=== PATIENT | female | born 1945 | race African-American/Black ===

== ENCOUNTER → 2017-02-24 | Outpatient (CLI) | payer OTHER ==
[~2017-02-24] MED LIST: ADVAIR HFA 230M12 GM INH; ALBUTEROL INH; AMBIEN 10 MG TA10 MG PO; AMBIEN 5 MG TABL5 M1 PO; ASPIR 8181 MG PO; AUGMENTIN 875875 MG PO; BACTROBAN CREAM30 GM TOP; CIPROFLOXACIN500 M1 PO; FERRO-TIME325 MG PO; FLAGYL500 MG PO; FLONASE 0.05%50 MCG NASAL; GLUCOPHAGE XR500 MG PO; GLUCOPHAGE500 MG PO; HYDROCHLOROTH12.5 M1 PO; HYDROCHLOROTHIA25 M1 PO; HYDROCODONE-AP1 EAC6 PO; HYDROCODONE-APA1 TA1 PO; KEFLEX500 MG PO; KLOR-CON SPRIN10 MEQ PO; LASIX 20 MG TAB20 MG PO; LEVOTHYROXIN0.075 MG PO; LISINOPRIL20 MG PO; LISINOPRIL30 MG PO; LISINOPRIL40 MG PO; MACROBID 100 M100 M1 PO; METFORMIN HCL500 MG PO; NASONEX17 GM NS; NEXIUM40 MG PO; OCUFLOX10 ML OP; PANTOPRAZOLE SO40 M1 PO; PEPCID40 MG PO; POTASSIUM20 PO; PRED FORTE 1% EY5 M1 OP; PROAIR HFA8.5 GM IH; SYMBICORT160 MCG/4. INH; TIROSINT75 MCG PO; ULTRAM 50MG TAB50 MG PO; XANAX 0.25 MG0.25 MG PO; ZANTAC 150MG T150 M1 PO; ZPAK PO
== END ==
LOC: RAD 01:19
DX: Z12.31 Encounter for screening mammogram for malignant neoplasm of breast (principal)

== ENCOUNTER 2017-10-17 09:44 | Inpatient (IN) | payer OTHER ==
[~2017-10-17] VITALS: Ht 152.4 cm; Wt 90.3 kg
[2017-10-17 10:24] LABS: ABSOLUTE NEUTROPHILS 4.9 thou/uL (1.4-8.2); BASOPHILS 0.3 % (0.0-2.0); EOSINOPHILS 1.5 % (0.0-3.0); HEMATOCRIT 38.3 % (37.0-47.0); HEMOGLOBIN 12.5 gm/dL (12.0-15.0); LYMPHOCYTES 14.4 % (24.0-44.0); MCH 28.2 pg (26.0-34.0); MCHC 32.7 g/dL (28.0-37.0); MCV 86.1 fL (80.0-100.0); MONOCYTES 2.3 % (1.0-8.0); PLATELET COUNT 249 thou/uL (150-400); POLYS 81.5 % (36.0-66.0); RBC 4.46 mil/uL (4.20-5.00); RDW 14.7 % (10.5-14.5)
[2017-10-17 10:25] VITALS: BP 137/60
[2017-10-17 10:32] LABS: CALCIUM 8.8 mg/dL (8.5-10.1); CREATININE 0.7 mg/dL (0.6-1.0); POTASSIUM 3.7 mmol/L (3.5-5.1)
[2017-10-17 10:38] LABS: ALBUMIN 2.9 g/dL (3.4-5.0); TOTAL BILIRUBIN 0.4 mg/dL (<0.1-1.0); TOTAL PROTEIN 6.3 g/dL (6.4-8.2)
[2017-10-17 11:44] LABS: URINE BILIRUBIN NEGATIVE (Negative); URINE BLOOD NEGATIVE (Negative); URINE CLARITY CLEAR; URINE COLOR YELLOW; URINE GLUCOSE-RANDOM* NEGATIVE (Negative); URINE KETONES 1+ (Negative); URINE LEUKOCYTES-REFLEX NEGATIVE (Negative); URINE NITRITE-REFLEX NEGATIVE (Negative); URINE PROTEIN (DIPSTICK) NEGATIVE (Negative); URINE SPECIFIC GRAVITY <= 1.005 (1.005-1.035); URINE UROBILINOGEN 0.2 E.U./dl (0.2-1.0)
[2017-10-17 11:50] VITALS: BP 158/71
[2017-10-17] MEDS ORDERED: HYDROCODONE-AP1 EAC6 PO (11:56)
[2017-10-17] MEDS ORDERED: ASPIR 8181 MG PO (11:56)
[2017-10-17 12:50] VITALS: BP 171/98
[2017-10-17 13:20] VITALS: BP 152/78
[2017-10-17 15:41] VITALS: BP 154/69
[2017-10-17 19:19] VITALS: BP 139/59
[2017-10-18 00:02] VITALS: BP 96/62
[2017-10-18 03:56] VITALS: BP 142/47
[2017-10-18 06:43] LABS: ABSOLUTE NEUTROPHILS 6.4 thou/uL (1.4-8.2); BASOPHILS 0.5 % (0.0-2.0); EOSINOPHILS 0.9 % (0.0-3.0); HEMATOCRIT 34.3 % (37.0-47.0); HEMOGLOBIN 11.4 gm/dL (12.0-15.0); LYMPHOCYTES 14.1 % (24.0-44.0); MCH 28.6 pg (26.0-34.0); MCHC 33.2 g/dL (28.0-37.0); MCV 86.1 fL (80.0-100.0); PLATELET COUNT 235 thou/uL (150-400); POLYS 75.5 % (36.0-66.0); RBC 3.99 mil/uL (4.20-5.00); RDW 14.5 % (10.5-14.5); WBC 8.5 thou/uL (4.0-11.0)
[2017-10-18 07:00] LABS: CALCIUM 8.5 mg/dL (8.5-10.1); CREATININE 0.6 mg/dL (0.6-1.0); MAGNESIUM 1.4 mg/dL (1.8-2.4); POTASSIUM 3.5 mmol/L (3.5-5.1)
[2017-10-18 08:00] VITALS: BP 137/58
[2017-10-18 15:29] VITALS: BP 150/66
[2017-10-18 20:45] VITALS: BP 154/78
[2017-10-19 05:28] VITALS: BP 142/54
[2017-10-19 06:45] LABS: HEMATOCRIT 33.4 % (37.0-47.0); MCH 28.4 pg (26.0-34.0); MCHC 32.8 g/dL (28.0-37.0); MCV 86.6 fL (80.0-100.0); RBC 3.86 mil/uL (4.20-5.00); RDW 14.5 % (10.5-14.5)
[2017-10-19 06:58] LABS: CALCIUM 8.4 mg/dL (8.5-10.1); CREATININE 0.6 mg/dL (0.6-1.0); POTASSIUM 3.2 mmol/L (3.5-5.1)
[2017-10-19 08:03] VITALS: BP 126/50
[2017-10-19 14:23] VITALS: BP 126/50
[2017-10-19 15:16] VITALS: BP 126/50
== END 2017-10-19 15:15 | disposition home or self-care (01) | DRG 388 ==
LOC: ER 09:44 → 4W 11:50 → EROBS 11:50 → 4W 13:22 → ENTRNSPT 10-19 15:13 → 4W 10-19 15:15 → EDTRNSPTSTS 10-19 15:15
PROVIDERS: Emergency Medicine; Nurse Practitioner; Surgery
DX: K56.600 Partial intestinal obstruction, unspecified as to cause (principal); E43 Unspecified severe protein-calorie malnutrition; J45.909 Unspecified asthma, uncomplicated; E03.9 Hypothyroidism, unspecified; I10 Essential (primary) hypertension; E11.9 Type 2 diabetes mellitus without complications; E87.6 Hypokalemia; E83.42 Hypomagnesemia; D51.9 Vitamin B12 deficiency anemia, unspecified; K66.0 Peritoneal adhesions (postprocedural) (postinfection); Z90.49 Acquired absence of other specified parts of digestive tract; Z68.38 Body mass index [BMI] 38.0-38.9, adult; Z79.82 Long term (current) use of aspirin; Z79.899 Other long term (current) drug therapy
CPT/HCPCS: 10045

== ENCOUNTER 2017-11-10 02:37 | Inpatient (IN) | payer OTHER ==
[2017-11-10] VITALS (10 sets, daily range): BP systolic 118–210; BP diastolic 65–111
[~2017-11-10] VITALS: Ht 160 cm; Wt 88.2 kg
--- NOTE | ~2017-11-10 | EKG ---
[address] [address] ELECTROCARDIOGRAM REPORT Name: TERRANCE SOLER Room #: 360-P ADM IN M.R.#: [id number] Admission: 11/10/17 Attend Phys: Vishal Moreira MD Discharge: Date of : 43 Report #: [id number] THIS REPORT FOR: //name// [facility] ED Test Date: 2017-11-10 Test Time: 02:50:22 Pat Name: TERRANCE SOLER Department: Room: 360 Gender: F Dormitory Keeper: MZOOK : 1945 Requested By: Christiana Crisostomo Order Number: [id number] MD: Mike Cain Measurements Intervals [place] Rate: 84 P: 62 OR: 175 QRS: 0 QRSD: 74 T: 44 QT: 356 QTc: 421 Interpretive Statements Sinus rhythm No significant abnormality Compared to ECG 11/02/2017 02:50:15 Myocardial infarct finding no longer present Electronically Signed On 11-10-2017 17:22:13 CDT by Mike Cain [email or web address] <ELECTRONICALLY SIGNED> By: Mike Cain MD, [facility] 11/10/17 1722 D: [id number] Mike Cain MD, FACC /EPI
--- NOTE | ~2017-11-10 | HC ---
[facility] [place] [address] CONSULTATION Name: TERRANCE SOLER Room #: 360-[facility] IN M.R.#: [id number] Admission: 11/10/17 Attend Phys: Vishal Moreira MD Discharge: Date of : 43 Report #: [id number] THIS REPORT FOR: //name// CC: Vishal Moreira Trinity Dickerson DATE OF SERVICE: 11/10/2017 REFERRING PROVIDER: Vishal Moreira MD REASON FOR CONSULT: Abdominal pain. HISTORY OF PRESENT ILLNESS: The patient is a 72-year-old -Honduran female known to me from a prior urgent laparoscopic repair of an incarcerated paraesophageal hernia in 2014. The patient did well from that operation until recently when she was admitted in the past few weeks with abdominal pain and CT findings of a possible small-bowel obstruction with matted clump of small bowel loops in the left upper quadrant. The patient's bowel obstruction improved with conservative therapy and she was discharged home only to be readmitted a week ago with ongoing complaints of pain. A repeat CT scan done a week ago again showed thickened small bowel loops in the similar area as to her matted clumps of small bowel loops, although a followup upper GI swallow was done showing normal transit, no obstruction and no mucosal abnormality. The patient was seen by Dr. Kim with the Gastroenterology Service who placed her on antibiotics for possible enteritis and as she improved once again clinically with conservative measures, she was discharged home. Unfortunately, the patient has now been readmitted with ongoing complaints of abdominal pain once again with workup last evening in the Emergency Room consisting of laboratories and a repeat CT scan once again. The patient's labs as per usual are within normal limits and her CT scan does show dilated proximal small bowel with normal small bowel distally concerning for yet again another bowel obstruction. For this reason, I am asked to evaluate once again. PAST MEDICAL HISTORY: Hypertension, hypothyroidism, asthma, pneumonia, ventral hernia, diabetes mellitus and a prior paraesophageal hernia repair. She has also undergone laparoscopic cholecystectomy with an umbilical hernia repair as well. HOME MEDICATIONS: Synthroid, metformin, lisinopril, hydrocodone, aspirin and Protonix. ALLERGIES: No known drug allergies. FAMILY HISTORY: Reviewed and noncontributory. SOCIAL HISTORY: The patient does not utilize tobacco, alcohol or illicit drugs. [address] [address] CONSULTATION Name: TERRANCE SOLER Room #: [address] [place] [address] IN M.R.#: [id number] Admission: 11/10/17 Attend Phys: Vishal Moreira MD Discharge: Date of : 44 Report #: [id number] REVIEW OF SYSTEMS: GENERAL: The patient denies nocturnal fevers or chills. HEENT: No change in vision, change in hearing. NECK: No swelling or difficulty swallowing. HEART: No chest pain or palpitations. LUNGS: No cough or shortness of breath. ABDOMEN: Abdominal pain, but no nausea or vomiting. GENITOURINARY: No dysuria or hematuria. ENDOCRINE: No polyuria, polydipsia. HEMATOLOGIC: No history of bleeding or easy bruising. EXTREMITIES: No history of weakness or limited range of motion. NEUROLOGIC: No history of syncope or near syncopal episodes. SKIN AND INTEGUMENT: No history of abnormal lesions or moles. PSYCHIATRIC: No history of anxiety or depression. PHYSICAL EXAMINATION: VITAL SIGNS: Temperature 98.0, pulse 78, respirations 21, blood pressure 190/97. She is 5 feet 3 inches tall and weighs 194 pounds. GENERAL: Alert and oriented, in no acute distress. HEENT: Normocephalic, atraumatic. Pupils are equal, round, reactive to light. NECK: Supple, without lymphadenopathy. Trachea midline. HEART: Regular rate and rhythm. LUNGS: Clear to auscultation bilaterally. ABDOMEN: Soft, obese, minimal distention and no tenderness to palpation. No guarding, no rebound, no peritoneal signs or symptoms. GENITOURINARY: Normal external female genitalia. EXTREMITIES: No clubbing, cyanosis or edema. NEUROLOGIC: Cranial nerves 2-12 are grossly intact. PSYCHIATRIC: Normal mood and affect. SKIN AND INTEGUMENT: No abnormal lesions or moles. LABORATORY AND X-RAY DATA: CBC showed white blood cell count of 5.3 thousand, hemoglobin 12.7, platelets 301,000. Creatinine is 0.9. Liver function enzymes are normal. Albumin is normal at 3.5, lactic acid normal at 1.6. CT scan of the abdomen and pelvis as per HPI shows dilated proximal small bowel with decompressed distal ileum concerning for recurrent bowel obstruction in the left mid abdomen. Urinalysis was negative. ASSESSMENT AND PLAN: A 72-year-old -Honduran female with her third admission as of late with complaints of ongoing abdominal pain. CT scans have been consistent in that they show dilated proximal small bowel with decompressed bowel distally, although a followup upper GI swallow showed normal transit with no dilated bowel with no obstruction. She did have mucosal thickening on some small bowel loops seen on her prior imaging for which she has been on antibiotics. She does not have any nausea or vomiting currently and is hungry. [address] [address] CONSULTATION Name: TERRANCE SOLER Room #: 360-P [facility] IN M.R.#: [id number] Admission: 11/10/17 Attend Phys: Vishal Moreira MD Discharge: Date of : 44 Report #: [id number] This is a mixed picture with radiographic evidence of a possible obstruction; however, no clinical evidence to support that other than ongoing abdominal pain. I suspect this is more of a partial obstruction than anything and due to this being her third admission, she may necessitate operative intervention for correction of this issue. At this time, an NG tube has been placed and I recommend continuation of that low intermittent suction for decompression and bowel rest at this time. I will follow along and leave any further recommendations in the patient's chart as appropriate and I sincerely appreciate this consult. <ELECTRONICALLY SIGNED> By: Linda Frazier MD, FACS 11/13/17 0851 1155 04 Linda Frazier MD, FACS /nt
--- NOTE | ~2017-11-10 | O ---
[facility] [place] [address] OPERATIVE REPORT Name: TERRANCE SOLER Room #: 360-P ADM IN M.R.#: [id number] Admission: 11/10/17 Attend Phys: Vishal Moreira MD Discharge: Date of : 44 Report #: [id number] THIS REPORT FOR: //name// CC: Vishal Dicekrson SURGEON: Christ Rasmussen MD PADDED BOX SEWER: Naman Hudson DO PREOPERATIVE DIAGNOSES: 1. Mechanical small bowel obstruction. 2. Diabetes mellitus. 3. Hypertension. 4. Asthma. 5. Hypothyroidism. POSTOPERATIVE DIAGNOSES: 1. Mechanical small bowel obstruction likely secondary to intra-abdominal adhesions from previous surgery. 2. Diabetes mellitus. 3. Hypertension. 4. Asthma. 5. Hypothyroidism. PROCEDURE: 1. Diagnostic laparoscopy. 2. Laparoscopic lysis of adhesions (70 minutes) with release of small bowel obstruction. ANESTHESIA: General endotracheal anesthesia and local anesthetic. ESTIMATED BLOOD LOSS: 5 mL. SPECIMEN: None. COMPLICATIONS: None appreciated. INDICATIONS FOR PROCEDURE: This is a 72-year-old female patient who has been admitted multiple times for small bowel obstructions which have resolved spontaneously, but recurred prompting her current hospital admission. During this admission, a nasogastric tube was placed and she again began passing flatus. Her x-rays showed some improvement; however, her dilated small bowel remained. She underwent a CT enterography study showing a transition point in the left mid abdomen with bowel dilated up to 4.8 cm in diameter. The patient presents today for laparoscopic release of her small bowel obstruction. [facility] [address] [place] [address] OPERATIVE REPORT Name: TERRANCE SOLER Room #: 360-P ADM IN M.R.#: [id number] Admission: 11/10/17 Attend Phys: Vishal Moreira MD Discharge: Date of : 44 Report #: [id number] OPERATIVE FINDINGS: Upon entrance into the abdominal cavity, the patient had adhesions involving the small bowel and omentum to the anterior abdominal wall where a previous hernia repair had taken place. She also had adhesions in the right upper quadrant from an open cholecystectomy. All bowel that was adherent to the anterior abdominal wall was decompressed. The more proximal bowel was involved with the obstruction. An omental adhesion down to the retroperitoneum appeared to have been the main cause for the obstruction after releasing the adhesion. The small bowel was run multiple times from distal to proximal and there did not appear to be a stricture. The bowel that was adhered to the anterior abdominal wall was coated with Tisseel. This bowel did not require resection and did not appear to have been damaged (serosal defects were not seen). No other significant intra-abdominal pathology was identified. At the conclusion of the operation, sponge, needle and instrument counts were correct. DESCRIPTION OF PROCEDURE IN DETAIL: After the risks, benefits and expectations of the operation were discussed in detail with the patient, informed consent was obtained. The patient was identified in the preoperative holding area. She was given IV antibiotics as documented in the chart in line with SCIP metrics. The patient was then taken to the operating room and she was placed in the supine position. SCDs were placed on the patient's bilateral lower extremities and pneumatic compression was initiated. The patient was then given IV sedation and she was intubated without incident. Abdomen was prepped and draped in the standard sterile fashion. A time-out was performed to identify the correct patient and procedure. Local anesthetic was infiltrated into the skin and subcutaneous tissue in the right lower quadrant of the abdomen. A transverse incision was made. A 5 mm Visiport was placed intraperitoneally. Pneumoperitoneum was achieved with insufflation of carbon dioxide to 15 mmHg. A 30-degree angled laparoscope was then inserted. A right lateral 5 mm and right upper quadrant 5 mm port were each placed under direct visualization after local anesthetic was infiltrated into the skin and subcutaneous tissue and appropriate sized incisions were made. Operative findings are as noted above. The patient had significant intraabdominal adhesions with no adhesions present in the areas where the ports were placed. I carefully took down small bowel adhesions to the anterior abdominal wall with sharp dissection and judicious use of electrocautery so as to avoid thermal spread. The adhesed bowel was carefully examined for any serosal defects that may have occurred. The small bowel was run from the distal aspect proximally and while doing so, an omental band was seen in the left abdomen, which correlated with the CT enterography findings. The omental band was divided with the ultrasonic dissector with good hemostasis. The bowel was then run from proximal to distal back again with careful examination of the bowel to ensure no serosal defects and no evidence for ischemia. 10 mL of Tisseel was applied to the bowel that [address] [address] OPERATIVE REPORT Name: TERRANCE SOLER MARTINEZ Room #: 360-P ADM IN M.R.#: [id number] Admission: 11/10/17 Attend Phys: Vishal Moreira MD Discharge: Date of : 44 Report #: [id number] had been taken down off of the anterior abdominal wall to further protect the bowel. The obstructed area was clearly evident and there appeared to be no further obstruction. The abdominal cavity was then desufflated and the ports were removed. Interrupted subcuticular 4-0 Monocryl sutures and Dermabond were used to close the skin incisions. The patient tolerated the procedure well. She was awakened, extubated and taken to recovery room in a stable condition with no apparent intraoperative complications. <ELECTRONICALLY SIGNED> By: Christ Rasmussen MD, FACS 11/16/172120 13 Christ Rasmussen MD, FACS /nt
[~2017-11-10 02:37] MED LIST changes: +CIPRO500 MG PO
[2017-11-10 03:18] LABS: URINE BILIRUBIN NEGATIVE (Negative); URINE BLOOD NEGATIVE (Negative); URINE CLARITY CLEAR; URINE COLOR YELLOW; URINE GLUCOSE-RANDOM* NEGATIVE (Negative); URINE KETONES NEGATIVE (Negative); URINE LEUKOCYTES NEGATIVE (Negative); URINE NITRITE NEGATIVE (Negative); URINE PROTEIN (DIPSTICK) NEGATIVE (Negative); URINE SPECIFIC GRAVITY <= 1.005 (1.005-1.035); URINE UROBILINOGEN 0.2 E.U./dl (0.2-1.0)
[2017-11-10 03:23] LABS: ABSOLUTE NEUTROPHILS 3.7 thou/uL (1.4-8.2); BASOPHILS 0.7 % (0.0-2.0); EOSINOPHILS 1.1 % (0.0-3.0); HEMOGLOBIN 12.7 gm/dL (12.0-15.0); LYMPHOCYTES 19.4 % (24.0-44.0); MCH 27.8 pg (26.0-34.0); MCHC 32.6 g/dL (28.0-37.0); MCV 85.1 fL (80.0-100.0); MONOCYTES 8.6 % (1.0-8.0); PLATELET COUNT 301 thou/uL (150-400); POLYS 70.2 % (36.0-66.0); RBC 4.58 mil/uL (4.20-5.00); WBC 5.3 thou/uL (4.0-11.0)
[2017-11-10 03:29] LABS: ANION GAP 13 mmol/L (7-16); BUN 9 mg/dL (7-18); CALCIUM 9.8 mg/dL (8.5-10.1); CHLORIDE 103 mmol/L (98-107); CO2 23 mmol/L (21-32); CREATININE 0.9 mg/dL (0.6-1.0); GLUCOSE 149 mg/dL (74-106); POTASSIUM 3.6 mmol/L (3.5-5.1); SODIUM 139 mmol/L (136-145)
[2017-11-10 03:35] LABS: ALBUMIN 3.5 g/dL (3.4-5.0); DIRECT BILIRUBIN 0.2 mg/dL (<0.1-0.3); LIPASE 98 U/L (73-393); SGOT 24 U/L (15-37); SGPT 26 U/L (30-65); TOTAL BILIRUBIN 0.5 mg/dL (<0.1-1.0); TOTAL PROTEIN 7.2 g/dL (6.4-8.2); TROPONIN-I < 0.04 ng/mL (<0.06)
[2017-11-11 04:25] VITALS: BP 132/72
[2017-11-11 04:39] LABS: HEMATOCRIT 35.7 % (37.0-47.0); HEMOGLOBIN 11.7 gm/dL (12.0-15.0); MCHC 32.8 g/dL (28.0-37.0); MCV 85.5 fL (80.0-100.0); RBC 4.17 mil/uL (4.20-5.00); RDW 15.4 % (10.5-14.5); WBC 4.8 thou/uL (4.0-11.0)
[2017-11-11 04:53] LABS: CALCIUM 8.5 mg/dL (8.5-10.1); CREATININE 0.7 mg/dL (0.6-1.0); POTASSIUM 3.5 mmol/L (3.5-5.1)
[2017-11-11 08:43] VITALS: BP 137/66
[2017-11-11 16:00] VITALS: BP 190/85
[2017-11-11 20:00] VITALS: BP 95/75
[2017-11-11 21:15] VITALS: BP 156/76
[2017-11-11 23:30] VITALS: BP 120/70
[2017-11-12 03:44] LABS: BASOPHILS 0.6 % (0.0-2.0); EOSINOPHILS 1.2 % (0.0-3.0); HEMATOCRIT 36.5 % (37.0-47.0); LYMPHOCYTES 17.4 % (24.0-44.0); MCH 28.3 pg (26.0-34.0); MCHC 32.9 g/dL (28.0-37.0); MCV 85.9 fL (80.0-100.0); MONOCYTES 9.5 % (1.0-8.0); PLATELET COUNT 270 thou/uL (150-400); POLYS 71.3 % (36.0-66.0); RBC 4.25 mil/uL (4.20-5.00); RDW 15.1 % (10.5-14.5); WBC 5.6 thou/uL (4.0-11.0)
[2017-11-12 03:50] LABS: CALCIUM 8.6 mg/dL (8.5-10.1); CREATININE 0.6 mg/dL (0.6-1.0); POTASSIUM 3.8 mmol/L (3.5-5.1)
[2017-11-12 04:15] VITALS: BP 182/91
[2017-11-12 05:54] VITALS: BP 150/84
[2017-11-12 07:30] VITALS: BP 134/72
[2017-11-12 11:17] VITALS: BP 138/48
[2017-11-12 15:30] VITALS: BP 153/82
[2017-11-12 19:10] VITALS: BP 131/51
[2017-11-13 05:05] VITALS: BP 122/56
[2017-11-13 05:17] LABS: ABSOLUTE NEUTROPHILS 2.1 thou/uL (1.4-8.2); BASOPHILS 0.6 % (0.0-2.0); EOSINOPHILS 3.2 % (0.0-3.0); HEMATOCRIT 35.1 % (37.0-47.0); HEMOGLOBIN 11.5 gm/dL (12.0-15.0); LYMPHOCYTES 29.6 % (24.0-44.0); MCH 28.1 pg (26.0-34.0); MCHC 32.9 g/dL (28.0-37.0); MCV 85.5 fL (80.0-100.0); MONOCYTES 11.8 % (1.0-8.0); PLATELET COUNT 252 thou/uL (150-400); POLYS 54.8 % (36.0-66.0); RBC 4.11 mil/uL (4.20-5.00); RDW 15.4 % (10.5-14.5); WBC 3.9 thou/uL (4.0-11.0)
[2017-11-13 05:33] LABS: CALCIUM 8.8 mg/dL (8.5-10.1); CREATININE 0.6 mg/dL (0.6-1.0); POTASSIUM 4.4 mmol/L (3.5-5.1)
[2017-11-13 07:44] VITALS: BP 145/74
[2017-11-13 08:46] LABS: MAGNESIUM 1.7 mg/dL (1.8-2.4)
[2017-11-13 16:55] VITALS: BP 167/89
[2017-11-13 18:09] VITALS: BP 177/101
[2017-11-13 19:25] VITALS: BP 149/86
[2017-11-14 04:30] VITALS: BP 129/80
[2017-11-14 06:14] LABS: HEMATOCRIT 37.5 % (37.0-47.0); HEMOGLOBIN 12.4 gm/dL (12.0-15.0); MCH 27.9 pg (26.0-34.0); MCV 84.5 fL (80.0-100.0); PLATELET COUNT 274 thou/uL (150-400); RBC 4.43 mil/uL (4.20-5.00); RDW 15.2 % (10.5-14.5); WBC 4.1 thou/uL (4.0-11.0)
[2017-11-14 06:25] LABS: CALCIUM 8.9 mg/dL (8.5-10.1); CREATININE 0.7 mg/dL (0.6-1.0); POTASSIUM 4.2 mmol/L (3.5-5.1)
[2017-11-14 07:40] VITALS: BP 147/83
[2017-11-14 08:26] LABS: ABSOLUTE NEUTROPHILS 2.4 thou/uL (1.4-8.2); ANISOCYTOSIS 1+
[2017-11-14 11:15] VITALS: BP 184/97
[2017-11-14 15:20] VITALS: BP 151/72
[2017-11-14 19:19] VITALS: BP 187/96
[2017-11-14 23:52] VITALS: BP 148/88
[2017-11-15] VITALS (12 sets, daily range): BP systolic 121–179; BP diastolic 53–89
[2017-11-16 04:05] VITALS: BP 115/53
[2017-11-16 06:49] LABS: ABSOLUTE NEUTROPHILS 2.8 thou/uL (1.4-8.2); BASOPHILS 0.8 % (0.0-2.0); EOSINOPHILS 3.2 % (0.0-3.0); HEMATOCRIT 38.7 % (37.0-47.0); HEMOGLOBIN 12.8 gm/dL (12.0-15.0); MCH 28.3 pg (26.0-34.0); MCHC 33.1 g/dL (28.0-37.0); MCV 85.5 fL (80.0-100.0); MONOCYTES 10.7 % (1.0-8.0); PLATELET COUNT 288 thou/uL (150-400); POLYS 60.3 % (36.0-66.0); RBC 4.53 mil/uL (4.20-5.00); RDW 15.6 % (10.5-14.5); WBC 4.7 thou/uL (4.0-11.0)
[2017-11-16 07:13] LABS: CALCIUM 8.5 mg/dL (8.5-10.1); CREATININE 0.7 mg/dL (0.6-1.0); POTASSIUM 4.5 mmol/L (3.5-5.1)
[2017-11-16 07:35] VITALS: BP 137/57
[2017-11-16 12:43] VITALS: BP 146/69
[2017-11-16 15:15] VITALS: BP 148/67
[2017-11-16 19:40] VITALS: BP 129/58
[2017-11-17 03:11] VITALS: BP 171/71
[2017-11-17 06:04] LABS: ABSOLUTE NEUTROPHILS 2.5 thou/uL (1.4-8.2); BASOPHILS 1.2 % (0.0-2.0); EOSINOPHILS 5.2 % (0.0-3.0); HEMATOCRIT 35.9 % (37.0-47.0); HEMOGLOBIN 11.7 gm/dL (12.0-15.0); LYMPHOCYTES 18.2 % (24.0-44.0); MCHC 32.5 g/dL (28.0-37.0); MCV 86.2 fL (80.0-100.0); MONOCYTES 11.3 % (1.0-8.0); PLATELET COUNT 261 thou/uL (150-400); POLYS 64.1 % (36.0-66.0); RBC 4.16 mil/uL (4.20-5.00); RDW 15.6 % (10.5-14.5)
[2017-11-17 06:14] LABS: CALCIUM 8.6 mg/dL (8.5-10.1); CREATININE 0.6 mg/dL (0.6-1.0); POTASSIUM 4.3 mmol/L (3.5-5.1)
[2017-11-17 08:20] VITALS: BP 160/76
[2017-11-17 15:32] VITALS: BP 159/86
[2017-11-17 19:50] VITALS: BP 149/49
[2017-11-18 00:15] VITALS: BP 129/42
[2017-11-18 04:30] VITALS: BP 136/49
[2017-11-18 08:04] VITALS: BP 173/82
[2017-11-18 09:19] VITALS: BP 173/82
== END 2017-11-18 10:17 | disposition home or self-care (01) | DRG 335 ==
LOC: ER 02:37 → 3W 05:46 → EROBS 05:46 → 3W 06:24
PROVIDERS: Emergency Medicine; Family Medicine; Hospitalist; Surgery
PROC: 0DN84ZZ Release Small Intestine, Percutaneous Endoscopic Approach (ICD-10-PCS; principal; 2017-11-15)
DX: K56.50 Intestinal adhesions [bands], unspecified as to partial versus complete obstruction (principal); E43 Unspecified severe protein-calorie malnutrition; M19.90 Unspecified osteoarthritis, unspecified site; E03.9 Hypothyroidism, unspecified; I10 Essential (primary) hypertension; I16.0 Hypertensive urgency; R93.8 Abnormal findings on diagnostic imaging of other specified body structures; E11.9 Type 2 diabetes mellitus without complications; Z90.49 Acquired absence of other specified parts of digestive tract; Z68.34 Body mass index [BMI] 34.0-34.9, adult; Z79.82 Long term (current) use of aspirin; Z79.84 Long term (current) use of oral hypoglycemic drugs; Z79.899 Other long term (current) drug therapy
CPT/HCPCS: 10879; 50010; 50101; 50221; 50249; 50386; 50525; 50555; 50962; 51437; 51489; 52182; 52265; 53307; 54118; 56462; 56526; 57092; 62110; 62900; 70005

== ENCOUNTER 2018-03-02 21:53 | Emergency (ER) | payer OTHER ==
[~2018-03-02] VITALS: Ht 160 cm; Wt 83.9 kg
--- NOTE | ~2018-03-02 | EKG ---
[place] [address] [address] [place] [address] ELECTROCARDIOGRAM REPORT Name: TERRANCE SOLER [id number] Admission: 03/02/18 Attend Phys: Discharge: 03/03/18 Date of : 44 Report #: [id number] THIS REPORT FOR: //name// [facility] ED Test Date: 2018-03-02 Test Time: 22:36:58 Pat Name: TERRANCE SOLER Department: Room: Gender: F Leather Scraper: crow jaime : 1945 Requested By: Christiana Crisostomo Order Number: [id number] MD: Mike Cain Measurements Intervals [place] Rate: 81 P: 10 AR: 187 QRS: -6 QRSD: 87 T: 12 QT: 357 QTc: 415 Interpretive Statements Sinus rhythm Inferior infarct, old Compared to ECG 11/10/2017 02:50:22 Inferior Q waves are more prominent Electronically Signed On 03-04-2018 15:26:19 CDT by Mike Cain [email or web address] <ELECTRONICALLY SIGNED> By: Mike Cain MD, [facility] 03/04/18 1526 2236 35 Mike Cain MD, FACC /EPI
[2018-03-02 22:40] LABS: ABSOLUTE NEUTROPHILS 7.1 thou/uL (1.4-8.2); BASOPHILS 0.5 % (0.0-2.0); EOSINOPHILS 1.2 % (0.0-3.0); HEMATOCRIT 35.5 % (37.0-47.0); HEMOGLOBIN 11.9 gm/dL (12.0-15.0); LYMPHOCYTES 10.6 % (24.0-44.0); MCH 28.3 pg (26.0-34.0); MCHC 33.5 g/dL (28.0-37.0); MCV 84.5 fL (80.0-100.0); MONOCYTES 4.6 % (1.0-8.0); PLATELET COUNT 251 thou/uL (150-400); POLYS 83.1 % (36.0-66.0); RBC 4.21 mil/uL (4.20-5.00); RDW 15.3 % (10.5-14.5); WBC 8.5 thou/uL (4.0-11.0)
[2018-03-02 22:45] LABS: CALCIUM 9.7 mg/dL (8.5-10.1); CREATININE 0.9 mg/dL (0.6-1.0); POTASSIUM 3.6 mmol/L (3.5-5.1)
[2018-03-02 22:51] LABS: ALBUMIN 3.7 g/dL (3.4-5.0); DIRECT BILIRUBIN 0.1 mg/dL (<0.1-0.3); TOTAL BILIRUBIN 0.3 mg/dL (<0.1-1.0); TOTAL PROTEIN 7.3 g/dL (6.4-8.2)
[2018-03-02 23:34] LABS: URINE BILIRUBIN NEGATIVE (Negative); URINE BLOOD NEGATIVE (Negative); URINE CLARITY CLEAR; URINE COLOR YELLOW; URINE GLUCOSE-RANDOM* NEGATIVE (Negative); URINE KETONES TRACE (Negative); URINE LEUKOCYTES NEGATIVE (Negative); URINE NITRITE NEGATIVE (Negative); URINE PROTEIN (DIPSTICK) NEGATIVE (Negative); URINE SPECIFIC GRAVITY 1.015 (1.005-1.035); URINE UROBILINOGEN 0.2 E.U./dl (0.2-1.0)
[2018-03-03] MEDS ORDERED: ZOFRAN ODT4 MG PO (01:01)
== END 2018-03-03 01:16 | disposition home or self-care (01) ==
LOC: ER 21:53
PROVIDERS: Emergency Medicine
DX: R10.13 Epigastric pain (principal); R11.2 Nausea with vomiting, unspecified; M17.0 Bilateral primary osteoarthritis of knee; J45.909 Unspecified asthma, uncomplicated; E03.9 Hypothyroidism, unspecified; I10 Essential (primary) hypertension; E11.9 Type 2 diabetes mellitus without complications; Z90.49 Acquired absence of other specified parts of digestive tract

== ENCOUNTER 2018-05-29 16:18 | Inpatient (IN) | payer OTHER ==
[~2018-05-29] VITALS: Ht 154.9 cm; Wt 89.3 kg
--- NOTE | ~2018-05-29 | EKG ---
[address] [place] [address] ELECTROCARDIOGRAM REPORT Name: TERRANCE SOLER Room #: 463-P ADM IN M.R.#: [id number] Admission: 05/29/18 Attend Phys: Tad Roberson MD Discharge: Date of : 44 Report #: [id number] THIS REPORT FOR: //name// [facility] ED Test Date: 2018-05-29 Test Time: 17:22:15 Pat Name: TERRANCE SOLER Department: Room: 463 Gender: F Proj Mgr: TRACY : 1945 Requested By: Alisha Silva Order Number: [id number] MD: Mike Cain Measurements Intervals [place] Rate: 83 P: -5 RI: 197 QRS: -11 QRSD: 87 T: 25 QT: 354 QTc: 416 Interpretive Statements Sinus rhythm Inferior infarct, old Probable anteroseptal infarct, old Compared to ECG 03/02/2018 22:36:58 No significant changes Electronically Signed On 05-30-2018 7:54:53 TOOL MACHINE SETUP OPERATOR by Mike Cain [email or web address] <ELECTRONICALLY SIGNED> By: Mike Cain MD, [facility] 05/30/18 0754 [id number] 172 Mike Cain MD, [facility] /EPI
[~2018-05-29 16:18] MED LIST changes: +ZOFRAN ODT4 MG PO
[2018-05-29 16:19] VITALS: BP 133/91
[2018-05-29 17:48] LABS: ABSOLUTE NEUTROPHILS 7.1 thou/uL (1.4-8.2); BASOPHILS 0.5 % (0.0-2.0); EOSINOPHILS 0.3 % (0.0-3.0); HEMATOCRIT 40.3 % (37.0-47.0); HEMOGLOBIN 13.6 gm/dL (12.0-15.0); LYMPHOCYTES 10.6 % (24.0-44.0); MCH 29.1 pg (26.0-34.0); MCHC 33.8 g/dL (28.0-37.0); MCV 86.2 fL (80.0-100.0); MONOCYTES 4.4 % (1.0-8.0); PLATELET COUNT 244 thou/uL (150-400); POLYS 84.2 % (36.0-66.0); RBC 4.68 mil/uL (4.20-5.00); RDW 15.8 % (10.5-14.5); WBC 8.4 thou/uL (4.0-11.0)
[2018-05-29 17:56] LABS: CALCIUM 9.9 mg/dL (8.5-10.1); CREATININE 0.9 mg/dL (0.6-1.0); POTASSIUM 3.8 mmol/L (3.5-5.1)
[2018-05-29 18:01] LABS: ALBUMIN 3.6 g/dL (3.4-5.0); TOTAL BILIRUBIN 0.5 mg/dL (<0.1-1.0); TOTAL PROTEIN 7.5 g/dL (6.4-8.2)
[2018-05-29 18:29] LABS: URINE BILIRUBIN NEGATIVE (Negative); URINE BLOOD NEGATIVE (Negative); URINE CLARITY CLEAR; URINE COLOR YELLOW; URINE GLUCOSE-RANDOM* NEGATIVE (Negative); URINE KETONES 2+ (Negative); URINE LEUKOCYTES-REFLEX NEGATIVE (Negative); URINE NITRITE-REFLEX NEGATIVE (Negative); URINE PROTEIN (DIPSTICK) NEGATIVE (Negative); URINE SPECIFIC GRAVITY 1.025 (1.005-1.035); URINE UROBILINOGEN 0.2 E.U./dl (0.2-1.0)
[2018-05-29 20:39] VITALS: BP 166/100
[2018-05-29 21:44] VITALS: BP 149/82
[2018-05-29 22:12] VITALS: BP 145/94
[2018-05-30 02:52] VITALS: BP 154/66
[2018-05-30 04:41] LABS: HEMATOCRIT 37.2 % (37.0-47.0); HEMOGLOBIN 12.4 gm/dL (12.0-15.0); MCH 29.1 pg (26.0-34.0); MCHC 33.3 g/dL (28.0-37.0); MCV 87.4 fL (80.0-100.0); RBC 4.25 mil/uL (4.20-5.00); RDW 15.5 % (10.5-14.5); WBC 5.7 thou/uL (4.0-11.0)
[2018-05-30 04:52] LABS: CALCIUM 8.5 mg/dL (8.5-10.1); CREATININE 0.7 mg/dL (0.6-1.0); POTASSIUM 3.7 mmol/L (3.5-5.1)
[2018-05-30 07:30] VITALS: BP 148/84
[2018-05-30 13:51] VITALS: BP 134/53
[2018-05-30 19:01] VITALS: BP 144/67
[2018-05-30 20:08] LABS: GLYCOHEMOGLOBIN (HGB A1C) 6.1 % (4.8-5.6)
[2018-05-31 04:23] VITALS: BP 119/52
[2018-05-31 06:29] LABS: HEMATOCRIT 38.2 % (37.0-47.0); HEMOGLOBIN 12.7 gm/dL (12.0-15.0); MCH 29.4 pg (26.0-34.0); MCHC 33.3 g/dL (28.0-37.0); MCV 88.2 fL (80.0-100.0); RBC 4.34 mil/uL (4.20-5.00); RDW 15.6 % (10.5-14.5); WBC 4.8 thou/uL (4.0-11.0)
[2018-05-31 06:37] LABS: CALCIUM 8.4 mg/dL (8.5-10.1); CREATININE 0.7 mg/dL (0.6-1.0); POTASSIUM 3.8 mmol/L (3.5-5.1)
[2018-05-31 07:34] VITALS: BP 133/65
[2018-05-31 07:52] LABS: FOLIC ACID 32.8 ng/mL (8.6-58.9)
== END 2018-05-31 11:30 | disposition left against medical advice (07) | DRG 388 ==
LOC: ER 16:18 → EROBS 19:43 → 4W 19:43
PROVIDERS: Hospitalist; Nurse Practitioner Family; Physician Assistant
DX: K56.609 Unspecified intestinal obstruction, unspecified as to partial versus complete obstruction (principal); E43 Unspecified severe protein-calorie malnutrition; M17.0 Bilateral primary osteoarthritis of knee; J45.909 Unspecified asthma, uncomplicated; E03.9 Hypothyroidism, unspecified; I10 Essential (primary) hypertension; E11.9 Type 2 diabetes mellitus without complications; E53.8 Deficiency of other specified B group vitamins; Z53.21 Procedure and treatment not carried out due to patient leaving prior to being seen by health care provider; Z90.49 Acquired absence of other specified parts of digestive tract; Z79.82 Long term (current) use of aspirin; Z79.899 Other long term (current) drug therapy
CPT/HCPCS: 10045

== ENCOUNTER 2018-07-01 19:12 | Inpatient (IN) | payer OTHER ==
[~2018-07-01] VITALS: Ht 160 cm; Wt 82.7 kg
[2018-07-01 19:27] VITALS: BP 145/119
[2018-07-01 20:26] LABS: URINE BILIRUBIN NEGATIVE (Negative); URINE BLOOD NEGATIVE (Negative); URINE CLARITY CLEAR; URINE COLOR YELLOW; URINE GLUCOSE-RANDOM* NEGATIVE (Negative); URINE KETONES NEGATIVE (Negative); URINE LEUKOCYTES-REFLEX NEGATIVE (Negative); URINE NITRITE-REFLEX NEGATIVE (Negative); URINE PROTEIN (DIPSTICK) NEGATIVE (Negative); URINE UROBILINOGEN 0.2 E.U./dl (0.2-1.0)
[2018-07-01 20:29] LABS: ABSOLUTE NEUTROPHILS 5.6 thou/uL (1.4-8.2); BASOPHILS 0.3 % (0.0-2.0); EOSINOPHILS 0.9 % (0.0-3.0); HEMATOCRIT 36.8 % (37.0-47.0); HEMOGLOBIN 12.3 gm/dL (12.0-15.0); LYMPHOCYTES 11.1 % (24.0-44.0); MCH 29.2 pg (26.0-34.0); MCHC 33.5 g/dL (28.0-37.0); MCV 87.1 fL (80.0-100.0); MONOCYTES 5.5 % (1.0-8.0); PLATELET COUNT 233 thou/uL (150-400); POLYS 82.2 % (36.0-66.0); RBC 4.22 mil/uL (4.20-5.00); RDW 14.3 % (10.5-14.5); WBC 6.8 thou/uL (4.0-11.0)
[2018-07-01 20:50] LABS: CALCIUM 9.4 mg/dL (8.5-10.1); CREATININE 0.9 mg/dL (0.6-1.0); POTASSIUM 3.6 mmol/L (3.5-5.1)
[2018-07-01 20:55] LABS: ALBUMIN 3.2 g/dL (3.4-5.0); DIRECT BILIRUBIN 0.1 mg/dL (<0.1-0.3); TOTAL BILIRUBIN 0.4 mg/dL (<0.1-1.0); TOTAL PROTEIN 6.5 g/dL (6.4-8.2)
[2018-07-01 23:46] VITALS: BP 146/92
[2018-07-01 23:50] VITALS: BP 142/99
[2018-07-02 00:15] VITALS: BP 148/71
[2018-07-02 04:33] VITALS: BP 126/63
[2018-07-02 06:27] LABS: CALCIUM 8.7 mg/dL (8.5-10.1); CREATININE 0.8 mg/dL (0.6-1.0); POTASSIUM 3.7 mmol/L (3.5-5.1)
[2018-07-02 07:35] VITALS: BP 134/53
[2018-07-02 14:52] VITALS: BP 131/82
[2018-07-03 03:00] VITALS: BP 139/59
[2018-07-03 03:36] LABS: CALCIUM 8.2 mg/dL (8.5-10.1); CREATININE 0.6 mg/dL (0.6-1.0); POTASSIUM 3.2 mmol/L (3.5-5.1)
[2018-07-03 05:29] LABS: HEMOGLOBIN 11.1 gm/dL (12.0-15.0); MCH 28.7 pg (26.0-34.0); MCHC 32.6 g/dL (28.0-37.0); MCV 88.2 fL (80.0-100.0); RBC 3.86 mil/uL (4.20-5.00); RDW 14.3 % (10.5-14.5); WBC 2.8 thou/uL (4.0-11.0)
[2018-07-03 07:50] VITALS: BP 146/69
[2018-07-03 11:30] VITALS: BP 185/87
[2018-07-03 15:46] VITALS: BP 185/87
== END 2018-07-03 16:03 | disposition home or self-care (01) | DRG 388 ==
LOC: ER 19:12 → EROBS 23:15 → 4W 23:15 → ENTRNSPT 07-03 15:55 → EDTRNSPTSTS 07-03 15:57 → 4W 07-03 16:03
PROVIDERS: Emergency Medicine; Hospitalist; Nurse Practitioner Family
DX: K56.609 Unspecified intestinal obstruction, unspecified as to partial versus complete obstruction (principal); E43 Unspecified severe protein-calorie malnutrition; M13.862 Other specified arthritis, left knee; M13.861 Other specified arthritis, right knee; J45.909 Unspecified asthma, uncomplicated; E03.9 Hypothyroidism, unspecified; I10 Essential (primary) hypertension; E11.9 Type 2 diabetes mellitus without complications; Z90.49 Acquired absence of other specified parts of digestive tract; Z79.82 Long term (current) use of aspirin; Z79.84 Long term (current) use of oral hypoglycemic drugs; Z79.899 Other long term (current) drug therapy
CPT/HCPCS: 10040

== ENCOUNTER → 2018-07-27 | Outpatient (CLI) | payer OTHER | LOC: RAD 01:10 | DX: N63.20 Unspecified lump in the left breast, unspecified quadrant (principal); R92.1 Mammographic calcification found on diagnostic imaging of breast ==

== ENCOUNTER 2018-08-13 12:29 | Emergency (ER) | payer OTHER ==
[~2018-08-13] VITALS: Ht 198.1 cm; Wt 117.9 kg
[2018-08-13] MEDS ORDERED: NORCO 7.5-3251 EACH PO (13:58)
[2018-08-13] MEDS ORDERED: PROTONIX40 M1 PO (13:58)
[2018-08-13] MEDS ORDERED: HYDROCHLOROTHIA25 M2 PO (13:59)
[2018-08-13 15:29] LABS: CALCIUM 8.5 mg/dL (8.5-10.1); CREATININE 0.8 mg/dL (0.6-1.0); POTASSIUM 4.1 mmol/L (3.5-5.1)
[2018-08-13 15:35] LABS: ALBUMIN 2.9 g/dL (3.4-5.0); TOTAL BILIRUBIN 0.3 mg/dL (<0.1-1.0); TOTAL PROTEIN 6.2 g/dL (6.4-8.2)
[2018-08-13 15:49] LABS: URINE CLARITY CLEAR; URINE COLOR YELLOW
[2018-08-13 15:50] LABS: ICTOTEST (BILI CONFIRMATORY) Negative (Negative); URINE BILIRUBIN NEGATIVE (Negative); URINE BLOOD NEGATIVE (Negative); URINE GLUCOSE-RANDOM* NEGATIVE (Negative); URINE KETONES 2+ (Negative); URINE LEUKOCYTES-REFLEX NEGATIVE (Negative); URINE NITRITE-REFLEX NEGATIVE (Negative); URINE PROTEIN (DIPSTICK) NEGATIVE (Negative); URINE SPECIFIC GRAVITY > 1.030 (1.005-1.035); URINE UROBILINOGEN 0.2 E.U./dl (0.2-1.0)
[2018-08-13 16:56] VITALS: BP 152/79
[2018-08-13 16:57] LABS: ABSOLUTE NEUTROPHILS 8.1 thou/uL (1.4-8.2); BASOPHILS 0.3 % (0.0-2.0); EOSINOPHILS 0.3 % (0.0-3.0); HEMATOCRIT 37.1 % (37.0-47.0); HEMOGLOBIN 12.2 gm/dL (12.0-15.0); MCH 28.9 pg (26.0-34.0); MCHC 32.9 g/dL (28.0-37.0); MCV 87.7 fL (80.0-100.0); MONOCYTES 3.1 % (1.0-8.0); PLATELET COUNT 248 thou/uL (150-400); POLYS 88.3 % (36.0-66.0); RBC 4.23 mil/uL (4.20-5.00); RDW 14.9 % (10.5-14.5); WBC 9.2 thou/uL (4.0-11.0)
== END 2018-08-13 17:16 | disposition home or self-care (01) ==
LOC: ER 12:29
PROVIDERS: Emergency Medicine; Nurse Practitioner Family
DX: R10.13 Epigastric pain (principal); R11.2 Nausea with vomiting, unspecified; M13.862 Other specified arthritis, left knee; M13.861 Other specified arthritis, right knee; J45.909 Unspecified asthma, uncomplicated; E03.9 Hypothyroidism, unspecified; I10 Essential (primary) hypertension; E11.9 Type 2 diabetes mellitus without complications; Z90.49 Acquired absence of other specified parts of digestive tract

== ENCOUNTER 2018-09-06 21:25 | Inpatient (IN) | payer OTHER ==
[~2018-09-06] VITALS: Ht 160 cm; Wt 81.6 kg
[~2018-09-06 21:25] MED LIST changes: +HYDROCHLOROTHIA25 M2 PO; +NORCO 7.5-3251 EACH PO; +PROTONIX40 M1 PO
[2018-09-06 21:56] VITALS: BP 142/93
[2018-09-06 22:17] LABS: BASOPHILS 0.4 % (0.0-2.0); EOSINOPHILS 0.4 % (0.0-3.0); HEMATOCRIT 37.5 % (37.0-47.0); HEMOGLOBIN 12.6 gm/dL (12.0-15.0); LYMPHOCYTES 11.3 % (24.0-44.0); MCHC 33.7 g/dL (28.0-37.0); MONOCYTES 4.1 % (1.0-8.0); PLATELET COUNT 272 thou/uL (150-400); POLYS 83.8 % (36.0-66.0); RBC 4.36 mil/uL (4.20-5.00); RDW 15.2 % (10.5-14.5); WBC 7.2 thou/uL (4.0-11.0)
[2018-09-06 22:21] LABS: CALCIUM 9.9 mg/dL (8.5-10.1); CREATININE 0.7 mg/dL (0.6-1.0); POTASSIUM 3.3 mmol/L (3.5-5.1)
[2018-09-06 22:26] LABS: ALBUMIN 3.3 g/dL (3.4-5.0); TOTAL BILIRUBIN 0.5 mg/dL (<0.1-1.0); TOTAL PROTEIN 6.8 g/dL (6.4-8.2)
[2018-09-07] VITALS (7 sets, daily range): BP systolic 126–180; BP diastolic 50–93
--- NOTE | 2018-09-07 01:47 | NUR ---
PT ADMITTED TO THE UNIT FROM THE ER AT APPROX 0030 IN A STABLE CONDITION.ADMISSION ASSESSMENT,EDUCATION AND HX COMPLETED.PT C/O ABD PAIN,MANAGED WITH IV MED.IVF INFUSING ORDERED.PT RESTING ON HER BED AT THIS TIME.EDEMA TO BLE NOTED.CALL LIGHT WITHIN REACH.
[2018-09-07 05:17] LABS: HEMATOCRIT 35.2 % (37.0-47.0); HEMOGLOBIN 11.4 gm/dL (12.0-15.0); MCH 28.6 pg (26.0-34.0); MCHC 32.5 g/dL (28.0-37.0); RDW 15.2 % (10.5-14.5); WBC 4.4 thou/uL (4.0-11.0)
[2018-09-07 05:27] LABS: CALCIUM 8.8 mg/dL (8.5-10.1); CREATININE 0.6 mg/dL (0.6-1.0); POTASSIUM 3.5 mmol/L (3.5-5.1)
--- NOTE | 2018-09-07 10:48 | NUR ---
RECEIVED PT FROM . ORIENTED PT TO ROOM/CALL LIGHT. PT IS AWAKE, ALERT/ORIENTED X4 AND PLEASANT. IV FLUIDS STARTED AND PAIN MEDICATION GIVEN PT REPORTS PAIN TO UPPER ABDOMEN RATED 8/10. SWABS AND MOISTURIZER GIVEN FOR ORAL CARE NEEDED. PT REQUESTING A SUPPOSITORY TO HELP HER BOWELS MOVE. WILL NOTIFY PHYSICIAN. OTHERWISE NO NEW CONCERNS. WILL CONTINUE CURRENT CARE.
--- NOTE | 2018-09-07 11:10 | NUR ---
ASSUMED CARE AT 0700, SHIFT ASSESSMENT DONE, VSS. NPO SINCE LAST NIGHT. WAS SEEN BY DR ARTEAGA THIS AM. KUB ORDERED. ORDER RECEIVED TO TRANFER PATIENT DOWN TO SENIOR SUITES, ROOM 221. REPORT GIVEN TO WILBER AND PATIENT LEFT WITH NURSES AID.
--- NOTE | 2018-09-07 11:59 | NUR ---
PT BLOOD GLUCOSE 71. NOTIFIED PHYSICIAN AND CHANGED IVF TO D5NS ORDERED.
--- NOTE | 2018-09-07 14:01 | NUR ---
Nutrition: admit w/ recurrent SBO and seen due to high risk screen for poor po, weight loss. Per hx, weight down 2# since june, 7# since May, not significant. On interview, pt reports her appetite is fine, she has just been eating less volume due to hx of SBOs. Follow soft diet. No NGT at this time, surgery following. Will monitor for timely diet advance. Consider low risk.
--- NOTE | 2018-09-08 04:12 | NUR ---
ASSUMED CARE OF PATIENT AT 1899. VSS. ASSESSMENT COMPLETED AT 2049 AND IS DOCUMENTED. IVF CONTINUE TO INFUSE PER DR. ORDER IN LEFT AC WITHOUT COMPLICATION. PT C/O BILAT KNEE PAIN SEVERAL TIMES THROUGHOUT THE NIGHT. PRN MORPHINE GIVEN PER DR ORDER WITH DESIRED EFFECT ACHIEVED. PT DENIES N/V/D. PT CURRENTLY SLEEPING SOUNDLY IN BED IN NO ACUTE DISTRESS. CALL LIGHT WITHIN REACH. BED LOCKED AND IN LOWEST POSITION. WCTM.
[2018-09-08 07:25] VITALS: BP 147/59
--- NOTE | 2018-09-08 10:35 | NUR ---
ASSUMED CARE OF PATIENT THIS MORNING. PATIENT IS A&OX4. PATIENT WAS ORIGINALLY NPO BUT PHYSICIAN CHANGED DIET TO CLEAR LIQUID AND ADVANCE TOLERATED. KUB SHOWED SIGNS OF IMPROVEMENT FROM ORIGINAL LOOP SIZE. SHE IS UP AD JOSE. NO ABNORMAL ASSESSMENT FINDINGS. NO CURRENT LABS. LEFT AC, RUNNING D5W 0.9 NS IV Q8H. PATIENT IS CURRENTLY SITTING IN BED WITH CALL LIGHT WITHIN REACH. SHE CALLS OUT APPROPRIATELY.
[2018-09-08 11:19] VITALS: BP 158/90
--- NOTE | 2018-09-08 13:55 | NUR ---
I AGREE WITH NURSING ASSESSMENT DONE MARCI/MANDY.
[2018-09-08 19:33] VITALS: BP 169/55
[2018-09-08 20:46] VITALS: BP 155/73
--- NOTE | 2018-09-09 04:52 | NUR ---
ASSUMED CARE OF PATIENT AT 1899. VSS. ASSESSMENT COMPLETED AT 2057 AND IS DOCUMENTED. PRN TYLENOL GIVEN X1 FOR C/O CHRONIC BILATERAL KNEE PAIN WITH DESIRED EFFECT ACHIEVED. IVF INFUSING INTO LEFT AC PIV WITHOUT COMPLICATION. PT SLEPT SOUNDLY THROUGHOUT THE NIGHT WITH NO ACUTE DISTRESS NOTED OR REPORTED. PT CALLS OUT APPROPRIATELY. BED LOCKED AND IN LOWEST POSITION. WCTM.
--- NOTE | 2018-09-09 05:04 | NUR ---
THIS NURSE AGREES WITH ASSESSMENT AND NOTES BY FARM OPERATIONS MANAGER ON THIS PATIENT.
[2018-09-09 07:50] VITALS: BP 173/74
[2018-09-09] MEDS ORDERED: COLACE100 MG PO (08:53)
[2018-09-09 09:55] VITALS: BP 173/74
--- NOTE | 2018-09-09 10:11 | NUR ---
ASSUMED CARE OF PATIENT THIS MORNING. PATIENT IS A&OX4. HE IS UP AD JOSE. PATIENT HAD NO ABNORMAL ASSESSMENT FINDINGS. LAST BOWEL MOVEMENT WAS 09/09/18. NO LAB DRAWS. ACCUCHECK Q6H. PATIENT COMPLAINED OF KNEE PAIN THIS MORNING 03/02. PATIENT HAD PARTIAL PAIN RELIEF FROM THE TYLENOL. PATIENT WILL BE DISCHARGED TODAY. IV WILL BE REMOVED UPON DISCHARGE. PATIENT WILL GO HOME WITH ONE PRESCRIPTION FOR STOOL SOFTENER. PATIENT IS CURRENTLY SITTING IN CHAIR, WITH CALL LIGHT WITHIN REACH. PATIENT CALLS OUT APPROPRIATELY.
--- NOTE | 2018-09-09 11:25 | NUR ---
I AGREE WITH NURSING ASSESSMENT DONE BY MARCI/MANDY.
== END 2018-09-09 13:01 | disposition home or self-care (01) | DRG 388 ==
LOC: ER 21:25 → SICU 23:40 → EROBS 23:40 → 4E 23:40 → SICU 09-07 10:34
PROVIDERS: Emergency Medicine; Nurse Practitioner Family; ADMIT Hospitalist
DX: K56.609 Unspecified intestinal obstruction, unspecified as to partial versus complete obstruction (principal); E43 Unspecified severe protein-calorie malnutrition; M17.0 Bilateral primary osteoarthritis of knee; J45.909 Unspecified asthma, uncomplicated; E03.9 Hypothyroidism, unspecified; I10 Essential (primary) hypertension; E11.9 Type 2 diabetes mellitus without complications; K21.9 Gastro-esophageal reflux disease without esophagitis; E87.6 Hypokalemia; Z90.49 Acquired absence of other specified parts of digestive tract; Z79.82 Long term (current) use of aspirin; Z79.899 Other long term (current) drug therapy
CPT/HCPCS: 15002

== ENCOUNTER 2018-09-24 21:23 | Inpatient (IN) | payer OTHER ==
[~2018-09-24] VITALS: Ht 152.4 cm; Wt 77.1 kg
[~2018-09-24 21:23] MED LIST changes: +COLACE100 MG PO
[2018-09-24 21:39] VITALS: BP 198/111
[2018-09-24 21:57] LABS: URINE BILIRUBIN NEGATIVE (Negative); URINE BLOOD NEGATIVE (Negative); URINE CLARITY CLEAR; URINE COLOR YELLOW; URINE GLUCOSE-RANDOM* NEGATIVE (Negative); URINE KETONES TRACE (Negative); URINE LEUKOCYTES NEGATIVE (Negative); URINE NITRITE NEGATIVE (Negative); URINE PROTEIN (DIPSTICK) NEGATIVE (Negative); URINE SPECIFIC GRAVITY 1.025 (1.005-1.035); URINE UROBILINOGEN 0.2 E.U./dl (0.2-1.0)
[2018-09-24 22:15] LABS: ABSOLUTE NEUTROPHILS 3.9 thou/uL (1.4-8.2); BASOPHILS 0.6 % (0.0-2.0); EOSINOPHILS 0.8 % (0.0-3.0); HEMOGLOBIN 12.5 gm/dL (12.0-15.0); LYMPHOCYTES 17.5 % (24.0-44.0); MCH 29.6 pg (26.0-34.0); MCHC 33.7 g/dL (28.0-37.0); MCV 87.8 fL (80.0-100.0); MONOCYTES 6.1 % (1.0-8.0); PLATELET COUNT 259 thou/uL (150-400); RBC 4.21 mil/uL (4.20-5.00); RDW 16.4 % (10.5-14.5); WBC 5.2 thou/uL (4.0-11.0)
[2018-09-24 22:29] LABS: ANION GAP 12 mmol/L (7-16); BUN 13 mg/dL (7-18); CHLORIDE 100 mmol/L (98-107); CO2 25 mmol/L (21-32); CREATININE 0.8 mg/dL (0.6-1.0); GLUCOSE 138 mg/dL (74-106); POTASSIUM 4.1 mmol/L (3.5-5.1); SODIUM 137 mmol/L (136-145)
[2018-09-24 22:38] LABS: ALBUMIN 3.2 g/dL (3.4-5.0); LIPASE 108 U/L (73-393); SGOT 18 U/L (15-37); SGPT 23 U/L (30-65); TOTAL BILIRUBIN 0.3 mg/dL (<0.1-1.0); TOTAL PROTEIN 6.8 g/dL (6.4-8.2); TROPONIN-I <0.06 ng/mL (<0.06)
[2018-09-25] MEDS ORDERED: ZOFRAN ODT4 MG PO (00:29)
[2018-09-25] MEDS ORDERED: ACETAMINOPHEN-1 EAC1 PO (00:29)
[2018-09-25] MEDS ORDERED: PEPCID20 MG PO (00:29)
--- NOTE | 2018-09-25 01:33 | NUR ---
PT WAS GOING TO LEAVE AMA, DECIDED TO BE ADMITTED PER MEDICAL ADVISE, REPORT CALLED NOW
[2018-09-25 02:25] VITALS: BP 144/75
[2018-09-25 03:40] VITALS: BP 125/64
[2018-09-25 06:05] LABS: CREATININE 0.7 mg/dL (0.6-1.0); POTASSIUM 3.9 mmol/L (3.5-5.1)
[2018-09-25 07:03] VITALS: BP 129/63
--- NOTE | 2018-09-25 07:34 | NUR ---
admit pt admitted to room 449 with sbo , bowel sounds hyperactive, abdomen distended but not firm, reports abdominal pain at a rate of 8 4 mg morphine given ivp and 650 mg tylenol given po with a small sip of water with effect pt slept for most of the night but still removes telemetry after each application. woke for levothyroxine pt was pleasant but refused to take it as she wanted to sleep longer.
--- NOTE | 2018-09-25 07:56 | EKG ---
[place] [address] [address] [facility] [place] [address] ELECTROCARDIOGRAM REPORT Name: TERRANCE SOLER Room #: 449-I ADM IN M.R.#: [id number] ������������������ Admission: 09/24/18 ������������������ Attend Phys: James Glass MD Discharge: ������������������ Date of : 43 Report #: [id number] ����������������������������������������������������������������� [id number] THIS REPORT FOR: //name// [facility] ED Test Date: 2018-09-24 Test Time: 22:25:46 Pat Name: TERRANCE SOLER Department: Room: [facility] Gender: F Concrete Laborer: MERLINE PARKER : 1945 Requested By: Marin Francis Order Number: [id number] MD: Mike Cain Measurements Intervals [place] Rate: 79 P: 35 MI: 173 QRS: -11 QRSD: 77 T: 9 QT: 374 QTc: 429 Interpretive Statements Sinus rhythm Inferior infarct, old Baseline wander in lead(s) V5 Compared to ECG 05/29/2018 17:22:15 No significant changes Electronically Signed On 09-25-2018 7:55:57 SHIPPING CHECKER by Mike Cain [email or web address] ��������������������������������������������� <ELECTRONICALLY SIGNED> ���������������������������������������� By: Mike Cain MD, [facility] ��������������������������������������������� 09/25/18 0755 2225 222 Mike Cain MD, [facility] /EPI
--- NOTE | 2018-09-25 13:02 | NUR ---
ASSESSMENT: CM REVIEWED CHART AND MET WITH PATIENT AT THE BEDSIDE. PT IS ALERT AND ORIENTED X4. PT WAS ADMITTED WITH SBO. PT REPORTS SHE LIVES IN A HOUSE WITH HER AND DAUGHTER. PT REPORTS NO STEPS TO ENTER OR ONCE INSIDE. PT REPORTS SHE AMBULATES USING A CANE. PT REPORTS SHE IS INDEPENDENT WITH ADLS. CM DISCUSSED ROLE. PT STATING SHE WILL NOT HAVE ANY NEEDS AT DISCHARGE STATING SHE ONLY WANTS HER FAMILY TAKING CARE OF HER AND THEY HELP HER. CM DISCUSSED HH BUT PT STATES SHE IS NOT INTERESTED. CM WILL CONTINUE TO FOLLOW TO ASSIST NEEDED.
[2018-09-25 14:50] VITALS: BP 160/84
--- NOTE | 2018-09-25 16:21 | NUR ---
PT A&OX4 AND VSS STABLE. PT HAD LOWER BACK PAIN AT A LEVEL 8, PAIN IS CURRENTLY CONTROLLED AND A 0 PER PT. PT CONTINUES ON NPO STATUS. WILL CONTINUE TO MONITOR.
[2018-09-25 19:20] VITALS: BP 115/74
[2018-09-25 19:59] VITALS: BP 121/67
[2018-09-26 05:17] LABS: HEMATOCRIT 34.4 % (37.0-47.0); HEMOGLOBIN 11.1 gm/dL (12.0-15.0); MCHC 32.4 g/dL (28.0-37.0); MCV 89.6 fL (80.0-100.0); RBC 3.84 mil/uL (4.20-5.00); RDW 16.7 % (10.5-14.5); WBC 2.8 thou/uL (4.0-11.0)
[2018-09-26 05:34] LABS: ALBUMIN 2.3 g/dL (3.4-5.0); CALCIUM 8.1 mg/dL (8.5-10.1); CREATININE 0.6 mg/dL (0.6-1.0); PHOSPHORUS 4.3 mg/dL (2.5-4.9); POTASSIUM 3.4 mmol/L (3.5-5.1)
[2018-09-26 05:37] VITALS: BP 153/70
[2018-09-26 07:26] LABS: TSH 3.009 uIU/mL (0.358-3.740)
--- NOTE | 2018-09-26 08:12 | NUR ---
PROGRESS PT A/O X4 VSS, LUNGS CLEAR ABDOMEN SOFT WITH HYPOACTIVE BS, DISTENTION RESOLVING, PT REPORTS HUNGER, 2 BM'S AND VOIDING QS. ANTIBIOTICS AND IVF'S CONTINUE ORDERED. PT HOPES TO DISCHARGE HOME TODAY. WAITING FOR PHYSICIAN TO ROUND.
[2018-09-26 08:49] LABS: FOLIC ACID 35.7 ng/mL (8.6-58.9)
[2018-09-26 09:42] VITALS: BP 147/73
[2018-09-26 13:51] VITALS: BP 145/65
[2018-09-26 14:25] VITALS: BP 127/52
[2018-09-26 19:05] VITALS: BP 136/71
--- NOTE | 2018-09-26 19:27 | NUR ---
PT ALERT AND ORIENTED TIMES FOUR. VSS, 98%RA, IVF INFUSING PER ORDER. C/O PAIN PRN MEDICATIONS GIVEN WITH SONE RELEIF. PT TOLERATES CLEAR LIQUID DIET. PT UP AB JOSE WITH STEADY GAIT. PT WILL BE NPO AFTER MIDNIGHT FOR SURGERY TOMORROW.
[2018-09-27 03:09] VITALS: BP 132/63
--- NOTE | 2018-09-27 04:23 | NUR ---
ASSUMED CARE AT START OF SHIFT PT CONTINUE TO C/O ABD PAIN DENIES NAUSEA, NPO FOR AM SURGERY , DISCUSSED PLAN OF CARE AND VERBALIZED UNDERSTANDING AND AGREEABLE.
[2018-09-27 06:55] VITALS: BP 145/66
--- NOTE | 2018-09-27 14:14 | NUR ---
AASUMED CARE AT 0700. AXOX4. NPO. IN SURGERY WITH CHANDLER JOLLEY FOR LAP LYSIS OF ADHESIONS. LEFT THE FLOOR IN STABLE CONDITION. HOME MEDS ADRRESSED TO SPECIFICALLY ABOUT METFORMIN AND SYNTHROID. PER , OK TO HOLD FOR NOW. NOTED.
[2018-09-27 16:31] VITALS: BP 131/59
[2018-09-27 19:06] VITALS: BP 137/59
[2018-09-28 03:37] VITALS: BP 126/64
[2018-09-28 07:24] VITALS: BP 171/84
--- NOTE | 2018-09-28 09:30 | NUR ---
ORDERS RECEIVED FOR EVAL AND TREAT. SPOKE WITH Pt AND SHE STATES SHE IS ALREADY WALKING THE HALLS WITH THE NURSING STUDENTS. STATES SHE FEELS STEADY ON HER FEET AND WILL CONTINUE TO WALK WITH THEM. OBSERVED Pt STAND FROM CHAIR WITHOUT DIFFICULTY. Pt DECLINING FORMAL P.T. EVAL BUT APPEARS SAFE TO CONTINUE TO WALK WITH NURSING.
--- NOTE | 2018-09-28 11:22 | NUR ---
TOWARDS POC PT A/O X4, VSS, AFEBRILE, DENIES PAIN. NO EPISODES OF NV. PT TOLERATING DIET WELL. NO CONCERNS VOICED WILL CONTINUE TO MONITOR.
[2018-09-28] MEDS ORDERED: NORCO 5-325 TA1 EACH PO (13:21)
[2018-09-28] MEDS ORDERED: SENNA-S TABLET1 EACH PO (13:21)
--- NOTE | 2018-09-28 16:03 | NUR ---
Pt is pod#1 from surgery. Pt's diet had been advanced and she is tolerating it. Pt isn't receptive to hh services upon dc. Pt is to discharge home with spouse and dtr once medically with no needs. Should needs arise cm able to assist.
[2018-09-28 16:45] VITALS: BP 153/71
[2018-09-28 20:45] VITALS: BP 145/74
--- NOTE | 2018-09-28 23:40 | O ---
[facility] [place] [address] OPERATIVE REPORT Name: TERRANCE SOLER Room #: 449-I ADM IN M.R.#: [id number] Admission: 09/24/18 ������������������ Attend Phys: Dian Vergara Discharge: ������������������ Date of : 43 Report #: [id number] THIS REPORT FOR: //name// CC: Dian Sarmientoie Jayla DATE OF SERVICE: 09/27/2018 PREOPERATIVE DIAGNOSES: Recurrent partial small bowel obstruction POSTOPERATIVE DIAGNOSES: 1. recurrent partial small bowel obstruction secondary to extensive intra-abdominal adhesions. 2. Bilateral inguinal hernias. 3. Small bowel diverticulosis. PROCEDURE: 1. Diagnostic laparoscopy with extensive laparoscopic lysis of adhesions (lasting greater than 90 minutes). 2. Adequate release of partial small-bowel obstruction. ANESTHESIA: General endotracheal anesthesia and local anesthetic. ESTIMATED BLOOD LOSS: 5 mL. SPECIMEN: None. COMPLICATIONS: None appreciated. INDICATIONS FOR PROCEDURE: This is a 73-year-old female patient known to me from a previous laparoscopic release of a persistent small-bowel obstruction on 11/15/2017. The patient had been admitted multiple times for small bowel obstructions prior to this, which resolved spontaneously. CT enterography showed a transition point in the left mid abdomen with dilated bowel up to 4.8 cm in diameter. She underwent laparoscopic lysis of adhesions, but has required multiple other hospital admissions for recurrent bowel obstructions that have cleared with conservative treatment. Her most recent hospitalization was in mid-August just a couple weeks ago. She resolved her obstructive process with conservative measures once again and never required nasogastric decompression. During this hospital admission, the patient was initially evaluated with a CT of the abdomen and pelvis, showing a partial bowel obstruction. Just to the right of midline, there was concern for an underlying volvulus. The small bowel was thickened and there was stranding along the mesentery of the small bowel, associated with twisting of the mesentery. The patient has been relatively asymptomatic as she had been with her previous [facility] [address] [place] [address] OPERATIVE REPORT Name: TERRANCE SOLER Room #: 449-I ADM IN .R.#: [id number] Admission: 09/24/18 ������������������ Attend Phys: Dian Vergara Discharge: ������������������ Date of : 43 Report #: [id number] admissions; however, she has continued to have bowel function/passing flatus. CT enterography was again performed, which showed focal small bowel thickening, felt to represent an anastomotic stricture were adhesions from a previous operation. Based on these findings and the patient's clinical history and exam, laparoscopy with possible need for a segmental small bowel resection is indicated. OPERATIVE FINDINGS: Upon entrance into the abdominal cavity, multiple adhesions were present including adhesions from the omentum and colon to the anterior abdominal wall in the area of the right subcostal incision. The patient had loops of small bowel adherent to the right abdominal wall as well as multiple interloop adhesions. After taking down all adhesions and running the bowel, resection was not felt to be necessary. The patient did have small bowel diverticulosis involving most of her jejunum; however, there was no acute inflammation associated with any of the diverticula. Bilateral inguinal hernias were also seen. There was no bowel involvement with either of the hernias. The section of bowel that appeared to have been resected and anastomosed was patent as there was no significant dilatation proximal to this area. No other significant pathology was seen. At the conclusion of the operation, the sponge, needle and instrument counts were correct. DESCRIPTION OF PROCEDURE IN DETAIL: After risks, benefits and expectations of the operation were discussed in detail with the patient, informed consent was obtained. The patient was identified in preoperative holding area. She was taken to the operating room and she was placed in supine position after being given antibiotics in line with SCIP metrics as documented in the chart. The patient was placed in the supine position. SCDs were placed on the patient's bilateral lower extremities and pneumatic compression was initiated. The patient was then given IV sedation and she was intubated without incident. Her abdomen was prepped and draped in the standard sterile fashion. A timeout was performed to identify the correct patient and procedure. Local anesthetic was infiltrated into the skin and subcutaneous tissue in the left subcostal area where a small transverse incision was made. A 5 mm Visiport was placed intraperitoneally with a 0-degree angled laparoscope. Pneumoperitoneum was achieved with insufflation of carbon dioxide to 15 mmHg. Additional 5 mm ports were placed in the left lateral and left lower quadrant after local anesthetic was infiltrated into the skin and subcutaneous tissue and appropriately sized incisions were made. Operative findings are as noted above. The multiple adhesions from the bowel to the anterior abdominal wall and the interloop adhesions were carefully taken down with blunt dissection, sharp dissection and judicious use of the ultrasonic dissector. Extensive dissection was also undertaken, which involves takedown of scar tissue in the right upper quadrant. This consisted mostly of omentum; however, colon was tightly adherent to the abdominal wall as well. After taking down all these adhesions, [facility] [address] [place] [address] OPERATIVE REPORT Name: TERRANCE SOLER Room #: 449-I ADM IN M.R.#: [id number] Admission: 09/24/18 ������������������ Attend Phys: Dian Vergara Discharge: ������������������ Date of : 43 Report #: [id number] the bowel was run from the ileocecal valve proximally. While doing so, adhesions from the small bowel to the anterior abdominal wall were encountered. The adherent loops were carefully dissected free sharply, with blunt dissection, and with judicious use of the ultrasonic dissector. After freeing up all bowel and running the bowel from distal to proximal (all the way to the ligament of Treitz), the bowel was run distally. There was no twisting of mesentery as had been seen on the CT scan; however, bowel did cross bowel in the area of concern. The anastomosed small bowel was visualized and did not appear to be obstructed. Multiple interloop adhesions were also carefully taken down mostly with sharp dissection and judicious use of the ultrasonic dissector. No other significant intra-abdominal pathology was seen. At the conclusion of the operation, the sponge, needle and instrument counts were correct. The abdominal cavity was desufflated and the ports were removed. Interrupted subcuticular 4-0 Monocryl sutures and Dermabond were used to close the skin incisions. The patient tolerated the procedure well. She was awakened, extubated and taken to the recovery room in stable condition with no apparent intraoperative complications. ��������������������������������������������� <ELECTRONICALLY SIGNED> ���������������������������������������� By: Christ Rasmussen MD, FACS ��������������������������������������������� 09/28/18 [id number] Christ Rasmussen MD, FACS /nt
--- NOTE | 2018-09-29 04:18 | NUR ---
ASSUMED PT CARE 1900. PT ALERT AND ORIENTED. PT REPORTS MILD PAIN, WELL CONTROLLED WITH MEDICATION. REASSESMENT COMPLETED. PT DENIES N/V AT THIS TIME. PT CALL LIGHT AND PERSONAL BELONINGS WITHIN REACH, WILL CONTINUE POC UNTIL EOS.
[2018-09-29 04:50] VITALS: BP 140/58
[2018-09-29 07:27] VITALS: BP 166/81
--- NOTE | 2018-09-29 08:51 | NUR ---
Assumed pt care this am, pt mentioned that she had 2 small bm yesterday and she is passing alot of gas.
[2018-09-29 11:15] VITALS: BP 166/81
== END 2018-09-29 12:00 | disposition home or self-care (01) | DRG 335 ==
LOC: ER 21:23 → EDBD 21:23 → 4W 23:41 → EROBS 23:41 → 4W 09-25 01:42
PROVIDERS: Emergency Medicine; Hospitalist; Nurse Practitioner Family; ADMIT Hospitalist
PROC: 0DN84ZZ Release Small Intestine, Percutaneous Endoscopic Approach (ICD-10-PCS; principal; 2018-09-27)
DX: K56.51 Intestinal adhesions [bands], with partial obstruction (principal); E43 Unspecified severe protein-calorie malnutrition; K40.00 Bilateral inguinal hernia, with obstruction, without gangrene, not specified as recurrent; Z79.899 Other long term (current) drug therapy; E11.9 Type 2 diabetes mellitus without complications; I10 Essential (primary) hypertension; E03.9 Hypothyroidism, unspecified; K57.10 Diverticulosis of small intestine without perforation or abscess without bleeding; K21.9 Gastro-esophageal reflux disease without esophagitis; E83.42 Hypomagnesemia; M13.862 Other specified arthritis, left knee; M13.861 Other specified arthritis, right knee; J45.909 Unspecified asthma, uncomplicated; Z90.49 Acquired absence of other specified parts of digestive tract; Z68.33 Body mass index [BMI] 33.0-33.9, adult
CPT/HCPCS: 10047; 50010; 50101; 50249; 50386; 50455; 50555; 50900; 50962; 52265; 52287; 53307; 54118; 56462; 56526; 57092; 62110; 62900; 70005

== ENCOUNTER 2019-01-10 08:28 | Inpatient (IN) | payer OTHER ==
[2019-01-10] VITALS (8 sets, daily range): BP systolic 115–153; BP diastolic 42–77
[~2019-01-10] VITALS: Ht 165.1 cm; Wt 78.5 kg
[~2019-01-10 08:28] MED LIST changes: +ACETAMINOPHEN-1 EAC1 PO; +NORCO 5-325 TA1 EACH PO; +PEPCID20 MG PO; +SENNA-S TABLET1 EACH PO
[2019-01-10 09:21] LABS: ABSOLUTE NEUTROPHILS 4.4 thou/uL (1.4-8.2); BASOPHILS 0.5 % (0.0-2.0); EOSINOPHILS 0.7 % (0.0-3.0); HEMATOCRIT 25.3 % (37.0-47.0); HEMOGLOBIN 8.5 gm/dL (12.0-15.0); LYMPHOCYTES 20.3 % (24.0-44.0); MCH 30.3 pg (26.0-34.0); MCHC 33.7 g/dL (28.0-37.0); MCV 89.7 fL (80.0-100.0); MONOCYTES 6.2 % (1.0-8.0); PLATELET COUNT 238 thou/uL (150-400); POLYS 72.3 % (36.0-66.0); RBC 2.83 mil/uL (4.20-5.00); RDW 15.6 % (10.5-14.5); WBC 6.1 thou/uL (4.0-11.0)
[2019-01-10 09:28] LABS: ANION GAP 11 mmol/L (7-16); BUN 22 mg/dL (7-18); CALCIUM 8.6 mg/dL (8.5-10.1); CHLORIDE 107 mmol/L (98-107); CO2 26 mmol/L (21-32); CREATININE 0.7 mg/dL (0.6-1.0); GLUCOSE 145 mg/dL (74-106); POTASSIUM 3.2 mmol/L (3.5-5.1); SODIUM 144 mmol/L (136-145)
[2019-01-10 09:37] LABS: APTT 28.3 Seconds (24.5-32.8); TROPONIN-I <0.06 ng/mL (<0.06)
[2019-01-10 10:16] LABS: URINE BILIRUBIN NEGATIVE (Negative); URINE BLOOD TRACE (Negative); URINE CLARITY CLEAR; URINE COLOR YELLOW; URINE GLUCOSE-RANDOM* NEGATIVE (Negative); URINE KETONES TRACE (Negative); URINE LEUKOCYTES-REFLEX TRACE (Negative); URINE NITRITE-REFLEX NEGATIVE (Negative); URINE PROTEIN (DIPSTICK) NEGATIVE (Negative); URINE SPECIFIC GRAVITY <= 1.005 (1.005-1.035); URINE UROBILINOGEN 0.2 E.U./dl (0.2-1.0)
[2019-01-10] MEDS ORDERED: PROTONIX40 M1 PO (10:48)
[2019-01-10] MEDS ORDERED: NORCO 7.5-3251 EACH PO (10:52)
--- NOTE | 2019-01-10 18:30 | NUR ---
PT ADMITTED WITH REPORTS BLOODY STOOLS X 2 DAYS...ADMITTING HGB WAS 8.5...1800 HGB WAS 6.9 AFTER 2 BLOODY STOOLS...KAY QUEVEDO NOTIFIED AND 1 UNIT OF BLOOD ORDERED...PLAN FOR EGD IN MORNING @ 0930 CONSENT SIGNED...
[2019-01-10 18:34] LABS: HEMOGLOBIN 6.9 gm/dL (12.0-15.0)
[2019-01-10 18:36] LABS: HEMATOCRIT 20.5 % (37.0-47.0)
[2019-01-11 01:43] LABS: HEMATOCRIT 22.5 % (37.0-47.0); HEMOGLOBIN 7.1 gm/dL (12.0-15.0)
[2019-01-11 04:00] VITALS: BP 123/55
--- NOTE | 2019-01-11 04:55 | NUR ---
PATIENT IS SLOWLY PROGRESSING IN HER CARE PLAN. VITAL SIGNS STABLE WITH PATIENT HAVING NO COMPLAINTS OF NAUSEA. PATIENT DID COMPLAIN OF LOWER BACK PAIN WHICH WAS TREATED EFFECTIVELY THROUGH MEDICATION AND REPOSITIONING. FULLY ORIENTED THROUGHOUT SHIFT, PATIENT WAS ABLE TO PARTICIPATE IN CARE AND CALL APPROPRIATELY FOR NEEDS. BLOOD TRANSFUSED SUCCESSFULLY EARLY IN SHIFT. PATIENT KEPT NPO FROM MIDNIGHT ON ANTICIPATION OF TODAYS PROCEDURE. SHE WAS UP TO THE BEDSIDE COMMODE MULTIPLE TIMES WHERE PATIENT DID EXHIBIT BLOODY STOOLS. PATIENT IS CONSIDERED A HIGH FALL RISK AND WAS ABLE TO AMBULATE TO BEDSIDE COMMODE WITH ASSISTANCE INCIDENT FREE. CONTINUE PLAN OF CARE.
[2019-01-11 05:45] LABS: ABSOLUTE NEUTROPHILS 2.9 thou/uL (1.4-8.2); BASOPHILS 0.5 % (0.0-2.0); EOSINOPHILS 4.7 % (0.0-3.0); HEMATOCRIT 21.6 % (37.0-47.0); HEMOGLOBIN 7.2 gm/dL (12.0-15.0); LYMPHOCYTES 31.3 % (24.0-44.0); MCH 29.5 pg (26.0-34.0); MCHC 33.6 g/dL (28.0-37.0); MCV 87.8 fL (80.0-100.0); MONOCYTES 6.9 % (1.0-8.0); PLATELET COUNT 177 thou/uL (150-400); POLYS 56.6 % (36.0-66.0); RBC 2.46 mil/uL (4.20-5.00); RDW 16.6 % (10.5-14.5); WBC 5.1 thou/uL (4.0-11.0)
[2019-01-11 06:05] LABS: CALCIUM 7.5 mg/dL (8.5-10.1); CREATININE 0.6 mg/dL (0.6-1.0); MAGNESIUM 2.1 mg/dL (1.8-2.4); POTASSIUM 4.1 mmol/L (3.5-5.1)
[2019-01-11 07:19] VITALS: BP 130/32
--- NOTE | 2019-01-11 08:28 | EKG ---
[place] [address] [facility] [place] [address] ELECTROCARDIOGRAM REPORT Name: TERRANCE SOLER Room #: 349-I ADM IN M.R.#: [id number] ������������������ Admission: 01/10/19 ������������������ Attend Phys: James Glass MD Discharge: ������������������ Date of : 43 Report #: [id number] ����������������������������������������������������������������� [id number] THIS REPORT FOR: //name// [facility] ED Test Date: 2019-01-10 Test Time: 09:12:54 Pat Name: TERRANCE SOLER Department: Room: 349 Gender: F Stone Grader: : 1945 Requested By: Raj Santos Order Number: [id number] MD: Mike Cain Measurements Intervals [place] Rate: 106 P: 63 MN: 172 QRS: -4 QRSD: 71 T: 21 QT: 313 QTc: 416 Interpretive Statements Sinus tachycardia Ventricular premature complex Inferior infarct, 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 ��������������������������������������������� 01/11/19 0828 1 1 Mike Cain MD, [facility] /EPI
[2019-01-11 11:00] VITALS: BP 134/25
--- NOTE | 2019-01-11 14:54 | NUR ---
ASSESSMENT: CM REVIEWED CHART AND MET WITH PT AT THE BEDSIDE. PT WAS ADMITTED WITH POSSIBLE GI BLEED. PT REPORTS SHE LIVES IN A HOUSE WITH HER AND DAUGHTER. PT REPORTS SHE HAS NO STEPS SHE HAS TO USE TO GET IN THE HOUSE OR ONCE INSIDE. PT REPORTS SHE AMBULATES USING A CANE. PT REPORTS SHE IS INDEPENDENT WITH ADLS. CM DISCUSSED ROLE. PT STATES SHE HAS NEVER HAD HH OR BEEN TO SNF AND DOES NOT PLAN ON IT ANYTIME SOON. PT REPORTS SHE WILL HAVE NO NEEDS AND WANTS TO RETURN HOME STATING HER FAMILY IS VERY SUPPORTIVE.
[2019-01-11 16:16] VITALS: BP 135/62
--- NOTE | 2019-01-11 16:39 | P ---
[facility] [place] [address] PROCEDURE REPORT Name: TERRANCE SOLER Room #: 349-I ADM IN M.R.#: [id number] Admission: 01/10/19 ������������������ Attend Phys: James Glass MD Discharge: ������������������ Date of : 43 Report #: [id number] THIS REPORT FOR: //name// CC: James Dickerson BRIEF HISTORY: The patient is a 73-year-old woman who presented with melenic stools and drop in hemoglobin. PREOPERATIVE DIAGNOSIS: Melenic stools. POSTOPERATIVE DIAGNOSES: 1. Moderate diffuse gastritis with an atrophic appearance. 2. Small hiatus hernia. MEDICATIONS: Deep sedation with propofol per anesthesia. SPECIMEN: Biopsies of gastritis. ESTIMATED BLOOD LOSS: 3 mL. PROCEDURE: EGD with biopsy. FINDINGS: Prior to propofol sedation, procedure of upper endoscopy discussed with the patient as well as potential risks and its complications. She indicates she understands and desires to proceed. DESCRIPTION OF PROCEDURE: With the patient in left lateral decubitus position, the Olympus video endoscope was inserted in the cervical esophagus under direct vision without difficulty. Examination of this organ through its entire length revealed normal esophageal mucosa down the squamocolumnar junction. Squamocolumnar junction was inspected and noted to be unremarkable. Scope was advanced and a small less than 2 cm sliding type hiatus hernia was seen. The scope was advanced in the stomach, which was examined on end view as well as retroflexed views. There was a pattern of diffuse gastritis with an atrophic pattern. No masses or lesions were seen upon retroflexion. No ulcers or bleeding lesion was seen. Blood was not seen in the esophagus. The pylorus was normal without evidence of bleeding. Duodenal bulb and postbulbar duodenal sweep down to the third portion was noted to be unremarkable again without evidence of potentially bleeding lesions. At that point, the scope was slowly withdrawn and careful circumferential views confirmed the above finding. Biopsies obtained of the gastritis. DISPOSITION: The patient presented with melenic stools. No evidence of bleeding lesion. Source of her melenic stools are not entirely clear. We will [address] [address] PROCEDURE REPORT Name: BAUDILIO SOLERLA Room #: 349-I ADM IN M.R.#: [id number] Admission: 01/10/19 ������������������ Attend Phys: James Glass MD Discharge: ������������������ Date of : 43 Report #: [id number] discuss with the patient, at this point in time, would recommend colonoscopy for further evaluation of melenic stools. ��������������������������������������������� <ELECTRONICALLY SIGNED> ���������������������������������������� By: Mariano Ritchie MD ��������������������������������������������� 01/11/19 1639 1310 1530 Mariano Ritchie MD /nt
[2019-01-11 19:09] VITALS: BP 145/63
--- NOTE | 2019-01-11 20:01 | NUR ---
PT ALERT AND ORIENTED TIMES FOUR. VSS, 100%RA, SR ON TELE, IVF INFUSING PER ORDER. PT C/O PAIN PRN MEDICATIONS GIVEN WITH SOME RELEIF. PT TOLERATES MEDS AND MEALS. PT UP WITH ONE ASSIST. PT NPO AFTER MIDNIGHT FOR GI TEST IN AM. PT SLOWLY PROGRESSING TOWRDAS POC GOALS.
[2019-01-12 03:27] VITALS: BP 107/49
--- NOTE | 2019-01-12 03:30 | NUR ---
Pt. rested at intervals during the night when checked on during frequent rounds. She did c/o pain to her back and knees. Pt. npo and new orders received for iv pain meds (see cpoe). Morphine given (see emar) with some relief noted. Pt. encouraged to take po bowel prep. Pt. is stooling, but is not clear. Having liquid bloody stools. Pt. became upset when this nurse turned on her bed alarm when rounding. After doing fall assessment this pt. did not become a high fall risk.
[2019-01-12 05:28] LABS: HEMATOCRIT 22.1 % (37.0-47.0); HEMOGLOBIN 7.3 gm/dL (12.0-15.0); MCH 29.3 pg (26.0-34.0); MCV 88.8 fL (80.0-100.0); RBC 2.49 mil/uL (4.20-5.00); RDW 17.4 % (10.5-14.5); WBC 4.2 thou/uL (4.0-11.0)
[2019-01-12 05:36] LABS: CALCIUM 7.9 mg/dL (8.5-10.1); CREATININE 0.6 mg/dL (0.6-1.0); POTASSIUM 4.1 mmol/L (3.5-5.1)
--- NOTE | 2019-01-12 07:00 | NUR ---
Stools are clear now this am.
[2019-01-12 07:07] VITALS: BP 121/45
--- NOTE | 2019-01-12 09:09 | NUR ---
Assumed pt care at 7am.Assessment completed.vss.Pt cleansed self and get ready for colonoscopy.Blood sugar this am was 62. 1 AMP D50ivp given as ordered. Received call from gi lab.Updates given.At 0810,pt left for procedure.Pt dtr called,updates given.Will continue to monitor.
[2019-01-12 09:35] VITALS: BP 141/53
[2019-01-12] MEDS ORDERED: PROTONIX40 M1 PO (11:40)
[2019-01-12 12:29] VITALS: BP 141/53
--- NOTE | 2019-01-14 14:38 | O ---
[facility] [address] OPERATIVE REPORT Name: TERRANCE SOLER Room #: 349-I [facility] IN M.R.#: [id number] Admission: 01/10/19 ������������������ Attend Phys: James Glass MD Discharge: 01/12/19 ������������������ Date of : 43 Report #: [id number] THIS REPORT FOR: //name// CC: James Dickerson SURGEON: Dr Yaron Sylvester MD PREOPERATIVE DIAGNOSES: Anemia and melena. POSTOPERATIVE DIAGNOSIS: See below. ANESTHESIA USED: See anesthesia notes. NAME OF THE PROCEDURE PERFORMED: Colonoscopy. INDICATION FOR PROCEDURE: As above. FINDINGS: 1. Mild sigmoid diverticulosis. 2. Otherwise, normal colonoscopy. DESCRIPTION OF PROCEDURE: The risks and benefits of the procedure were explained in detail prior to monitored anesthesia. Next, the patient was placed in the left lateral decubitus position and digital rectal exam was performed under monitored anesthesia. Rectal exam was normal. Next, the Olympus video colonoscope was advanced into the rectum and gently to the cecum without difficulty. A close inspection of the colonic mucosal detail was obtained upon slow withdrawal of the colonoscope. The colonoscope tip was introduced into the terminal ileum, which was normal in appearance. The visualized segments of the colon revealed no significant abnormality except for mild sigmoid diverticulosis. There was no evidence of erosions, polyps, masses, tumors, colitis or other significant abnormality. Retroflexion in the rectum revealed no abnormality. The patient tolerated the procedure well and was discharged to recovery room. IMPRESSION: 1. Sigmoid diverticulosis. 2. No evidence of gastrointestinal bleeding source. PLAN: 1. See orders. 2. Consider PillCam and further evaluation for anemia and melena. ��������������������������������������������� <ELECTRONICALLY SIGNED> ���������������������������������������� By: Richie Ortiz MD ��������������������������������������������� 01/14/19 1438 [id number] Yaron Sylvester MD /nt
== END 2019-01-12 12:20 | disposition home or self-care (01) | DRG 378 ==
LOC: ER 08:28 → 3W 09:35 → EROBS 09:35 → 3W 10:33
PROVIDERS: Emergency Medicine; Internal Medicine Gastroenterology; Nurse Practitioner; ADMIT Hospitalist
PROC: 30233N1 Transfusion of Nonautologous Red Blood Cells into Peripheral Vein, Percutaneous Approach (ICD-10-PCS; principal; 2019-01-10)
PROC: 0DB68ZX Excision of Stomach, Via Natural or Artificial Opening Endoscopic, Diagnostic (ICD-10-PCS; 2019-01-11)
PROC: 0DJD8ZZ Inspection of Lower Intestinal Tract, Via Natural or Artificial Opening Endoscopic (ICD-10-PCS; 2019-01-12)
DX: K29.71 Gastritis, unspecified, with bleeding (principal); K86.2 Cyst of pancreas; K57.31 Diverticulosis of large intestine without perforation or abscess with bleeding; M17.0 Bilateral primary osteoarthritis of knee; J45.909 Unspecified asthma, uncomplicated; E03.9 Hypothyroidism, unspecified; I10 Essential (primary) hypertension; E11.9 Type 2 diabetes mellitus without complications; K44.9 Diaphragmatic hernia without obstruction or gangrene; E78.5 Hyperlipidemia, unspecified; E87.6 Hypokalemia; D64.9 Anemia, unspecified; Z90.49 Acquired absence of other specified parts of digestive tract; Z79.82 Long term (current) use of aspirin; Z79.84 Long term (current) use of oral hypoglycemic drugs; Z79.899 Other long term (current) drug therapy; Z79.890 Hormone replacement therapy
CPT/HCPCS: 10879; 62110; 62900; 70005